=== PATIENT | female | born 2005 | race Caucasian/White ===

== ENCOUNTER 2024-03-01 15:39 | Outpatient (CLI) | payer OTHER, SELFPAY ==
--- NOTE | ~2024-03-01 | US_ITS ---
EXAMINATION: US pelvic complete INDICATION: Heavy painful periods. Comparison:No prior studies for comparison. TECHNIQUE: Multiple transabdominal sonographic images of the pelvis performed. FINDINGS: The uterus measures 5.7 x 3.8 x 4.2 cm. The endometrial complex measures 4 mm. The right ovary measures 2 x 1 x 1.8 cm and the left ovary measures 1.8 x 0.9 x 1.2 cm. There are sm all follicles in each ovary. Normal doppler signal in both ovaries. There is free fluid in the pelvis. There are no abnormal masses seen on either side. IMPRESSION: 1. Unremarkable pelvic ultrasound. Reviewed, dictated and finalized at location B. [facility] [employer] [facility]
== END 2024-03-01 15:40 | disposition home or self-care (01) ==
PROVIDERS: PCP Pediatrics; Visit Provider Student in an Organized Health Care Education/Training Program
DX: N92.0 Excessive and frequent menstruation with regular cycle (principal); N94.6 Dysmenorrhea, unspecified
CPT/HCPCS: 76856